=== PATIENT | female | born 1980 | race Caucasian/White ===

== ENCOUNTER 2020-06-13 12:07 | Outpatient (CLI) | payer OTHER ==
[~2020-06-13 12:07] MED LIST: Iopamidol 370 76% 100 ML VIAL ONE
--- NOTE | 2020-06-13 13:22 | CT ---
EXAM: CT ABDOMEN AND PELVIS HISTORY: Lymphadenopathy COMPARISON: 09/22/2014 Correlation: Pet imaging 10/31/2014 Procedure: Multiple contiguous axial images were obtained and a CT of the abdomen and pelvis with IV contrast. C oronal reformats were performed. FINDINGS: Lower Chest: Clear Vessels: Normal caliber aorta. No periaortic fat stranding Heart: Normal heart size. No significant pericardial fluid Abdomen: Portal vein:Patent Gallbladder: No calcified gallstones. Normal caliber wall. Liver: within normal limits. Pancreas: within normal limits. Spleen: within normal limits. Adrenals: within normal limits. Kidneys: Symmetric enhancement. No obstructive uropathy. Peritoneum: No ascites or free air, no fluid collection. Bowel: Limited evaluation due to the lack of oral contrast administration. No evidence of bowel obstr uction. Ileocecal junction is unremarkable. Normal caliber appendix. Scattered fecal material in a nondistended, nondilated colon. Mesentery and Retroperitoneum: There are enlarged lymph nodes in the right lower quadrant mesentery, noncystic. Largest energy conservation representative lymph node measures 1.4 x 0.6 cm. Abdominal Wall: within normal limits. Pelvis: Reproductive Organs: Reproductive organs are unremarkable. 1 cm follicle in the left ovary. Pelvis: No mass, lymphadenopathy, free air. Small amount of physiologic free fluid. Bladder: within normal limits. Bones: within normal limits. IMPRESSION: 1. Mildly enlarged lymph nodes in the right lower quadrant mesentery. Correlate for mesenteric lympha denitis. 2. Normal caliber appendix. No evidence of bowel obstruction.
== END 2020-06-13 12:08 | disposition home or self-care (01) ==
LOC: CT 12:07
PROVIDERS: ATTEND Family Medicine
DX: R59.1 Generalized enlarged lymph nodes (principal); R00.2 Palpitations
CPT/HCPCS: 74177; 93225; 93226; Q9967

== ENCOUNTER 2020-08-20 13:31 | Outpatient (CLI) | payer OTHER ==
--- NOTE | 2020-08-20 14:30 | CT ---
CT ABDOMEN AND PELVIS PERFORMED WITH CONTRAST ENHANCEMENT: HISTORY: Followup of prominent mesenteric lymph nodes. Hx Non hodgkins Lymphoma COMPARISON: 06/13/2020 exam. FINDINGS: Lung bases are clear. The liver, spleen, pancreas, and gallbladder regions all appear unremarkable. Right and left adrenal glands and right and left kidneys are normal in size. There is no significant periaortic adenopathy. Small mesenteric nodes are again noted. These are more prominent in the ile ocolic chain that are stable and nonspecific. CT OF PELVIS PERFORMED WITH CONTRAST ENHANCEMENT: The appendix is normal. Left ovarian follicle is demonstrated. No free fluid, adenopathy, or mass. IMPRESSION: Stable nonspecific small mesenteric nodes more prominent in the ileocolic chain. POS: VINCE
== END 2020-08-20 13:32 | disposition home or self-care (01) ==
LOC: BICCT 13:31
PROVIDERS: ATTEND Family Medicine
DX: R59.1 Generalized enlarged lymph nodes (principal); I88.0 Nonspecific mesenteric lymphadenitis
CPT/HCPCS: 74177; Q9967

== ENCOUNTER 2022-06-24 11:03 | Outpatient (CLI) | payer OTHER | END 2022-06-24 11:04 | disposition home or self-care (01) | LOC: BICMAMMO 11:03 | PROVIDERS: ATTEND Family Medicine | DX: Z12.31 Encounter for screening mammogram for malignant neoplasm of breast (principal); Z85.71 Personal history of Hodgkin lymphoma; Z80.3 Family history of malignant neoplasm of breast | CPT/HCPCS: 77063; 77067 ==